=== PATIENT | female | born 1970 ===

== ENCOUNTER → 2023-01-04 | Day surgery (SDC) | payer OTHER ==
[2022-12-28 10:50] LABS: URINE APPEARANCE Cloudy; URINE BILIRRUBIN Negative (NEGATIVE); URINE BLOOD Negative; URINE COLOR Yellow; URINE GLUCOSE Negative (NEGATIVE); URINE LEUKOCYTE Moderate; URINE NITRATE Negative; URINE PROTEIN Negative (NEGATIVE); URINE UROBILINOGEN 0.2 E.U./dl
[2022-12-28 10:55] LABS: HEMATOCRIT 39.8 % (36.0-45.00); HEMOGLOBIN 13.2 g/dL (12.0-15.00); MEAN CELL VOLUME 79.4 fL (80.00-100.00); MEAN CORPUSCULAR HEMOGLOBIN 26.4 pg (27.00-32.0); MEAN CORPUSCULAR HGB CONC 33.2 g/dl (32.0-36.0); PLATELET COUNT 305 K/uL (150-450); RED BLOOD COUNT 5.01 M/uL (4.00-6.00); RED CELL DISTRIBUTION WIDTH 15.4 % (11.5-14.5)
[2022-12-28 10:56] LABS: URINE BACTERIA 3042.8 uL (0.0-1933); URINE RBC 9.1 uL (0.0-20.8); URINE WBC 79.6 uL (0.0-23.2)
[2022-12-28 11:22] LABS: ALBUMIN 3.8 gm/dL (3.4-5.0); BILIRUBIN TOTAL 0.45 mg/dL (0.3-1.2); CALCIUM 10.1 mg/dL (8.5-10.1); CREATININE SERUM 0.78 mg/dL (0.55-1.02); GFR 77.86; GLOBULINA 4.2 G/DL (2.4-3.5); POTASSIUM 4.38 mEq/L (3.5-5.1)
[2022-12-28 11:27] LABS: INR 0.98; PARTIAL THROMBOPLASTIN TIME 27.1 SECONDS (22.0-34.0); PROTHROMBIN TIME 10.3 SECONDS (9.0-11.5)
[~2023-01-04] VITALS: Ht 162.6 cm; Wt 81.6 kg
[~2023-01-04] MED LIST: MAXIMUM D3325 MCG PO; SYNTHROID100 MCG PO
== END | disposition home or self-care (01) ==
LOC: ADM 12-28 08:45 → CIR.AMB 06:02
PROVIDERS: ATTEND Obstetrics & Gynecology
DX: N85.02 Endometrial intraepithelial neoplasia [EIN] (principal); N93.8 Other specified abnormal uterine and vaginal bleeding; Z20.822 Contact with and (suspected) exposure to COVID-19; E03.9 Hypothyroidism, unspecified